=== PATIENT | male | born 1990 | race Hispanic/Latino ===

== ENCOUNTER 2023-04-28 18:27 | Emergency (ER) | payer OTHER ==
[~2023-04-28] VITALS: Ht 172.7 cm; Wt 95.3 kg
[2023-04-28 18:49] LABS: BASOPHILS % (AUTO) 0.4 % (0.0-5.0); EOSINOPHILS % (AUTO) 3.3 % (0.0-8.0); HEMATOCRIT 38.3 % (42-54); LYMPHOCYTES % (AUTO) 28.8 % (21.0-51.0); MEAN CORPUSCULAR HGB CONC 33.9 g/dL (32.0-36.0); MEAN CORPUSCULAR VOLUME 85.5 fL (79-99); NEUTROPHILS % (AUTO) 58.3 % (40.0-77.0); PLATELET COUNT (AUTO) 375 K/uL (130-400); RED BLOOD CELL COUNT(AUTO) 4.48 MIL/uL (4.50-6.20); RED CELL DISTRIBUTION WIDTH 12.9 % (11.0-15.5); WHITE BLOOD COUNT (AUTO) 5.2 K/uL (4.8-10.8)
[2023-04-28 18:52] LABS: APPEARANCE,URINE CLEAR (CLEAR); BILIRUBIN,URINE NEGATIVE (NEGATIVE); COLOR,URINE LIGHT-YELLOW (YELLOW); GLUCOSE, URINE (UA) NEGATIVE (NEGATIVE); KETONES,URINE NEGATIVE (NEGATIVE); LEUKOCYTE ESTERASE ,URINE NEGATIVE Leu/uL (NEGATIVE); NITRATE,URINE NEGATIVE (NEGATIVE); OCCULT BLOOD,URINE SMALL (NEGATIVE); PH,URINE 6.5 (5.0-8.0); PROTEIN,URINE NEGATIVE (NEGATIVE); UROBILINOGEN,URINE 0.2 mg/dL (0.2-1.0)
[2023-04-28 18:56] LABS: BACTERIA,URINE RARE /HPF (None Seen); MUCUS,URINE RARE LPF (None Seen); WBC,URINE 0-1 /HPF (0-1)
[2023-04-28 19:01] LABS: AMPHET/METH SCREEN,URINE NEGATIVE (NEGATIVE); BARBITURATE SCREEN, URINE NEGATIVE (NEGATIVE); BENZODIAZEPINES SCREEN,URINE NEGATIVE (NEGATIVE); CANNABINOID SCREEN,URINE NEGATIVE (NEGATIVE); COCAINE SCREEN,URINE POSITIVE (NEGATIVE); OPIATE SCREEN,URINE NEGATIVE (NEGATIVE); PHENCYCLIDINE SCREEN,URINE NEGATIVE (NEGATIVE)
[2023-04-28 19:06] LABS: CREATININE 0.9 mg/dL (0.5-1.5); POTASSIUM 3.6 mmol/L (3.5-5.1)
[2023-04-28 19:10] LABS: ALBUMIN 3.3 g/dL (3.5-5.0); TOTAL PROTEIN, SERUM 8.7 g/dL (6.0-8.3)
[2023-04-28] MEDS ORDERED: FAMOTIDINE 20MG VIAL IV ONE (20:30)
[2023-04-28] MEDS ORDERED: ONDANSETRON 4MG INJ IVP ONE (20:30)
[2023-04-28] MEDS ORDERED: LACTATED RINGERS 1000ML 1,000 ML IV ONE (20:30)
[2023-04-28] MEDS ORDERED: IOHEXOL 350 MG/ML 100ML INFUS..BTL IV ONE (20:32)
[2023-04-28] MEDS ORDERED: MORPHINE 4 MG SYG IVP ONE (21:00)
[2023-04-28] MEDS ORDERED: METO-296 PO (23:03)
[2023-04-28] MEDS ORDERED: PANT40TA PO (23:03)
[2023-04-28 23:24] VITALS: BP 134/81
== END 2023-04-28 23:26 | disposition home or self-care (01) ==
LOC: EDH 18:27
DX: R10.13 Epigastric pain (principal); R16.0 Hepatomegaly, not elsewhere classified; F17.200 Nicotine dependence, unspecified, uncomplicated
CPT/HCPCS: 99285; 74178; 96374; 76705; 96375; 80053; 80305; 83690; 85025; 36415; 81001; J7120; J3490; J2405; J2270; Q9967

== ENCOUNTER 2023-05-10 23:50 | Emergency (ER) | payer OTHER ==
[~2023-05-10] VITALS: Ht 172.7 cm; Wt 90.7 kg
[~2023-05-10 23:50] MED LIST: METO-296 PO; PANT40TA PO
[2023-05-10 23:51] VITALS: BP 132/73
[2023-05-11] MEDS ORDERED: MAG-55 PO (01:34)
== END 2023-05-11 01:38 | disposition home or self-care (01) ==
LOC: EDH 23:50
DX: K29.00 Acute gastritis without bleeding (principal); F17.200 Nicotine dependence, unspecified, uncomplicated; Z79.899 Other long term (current) drug therapy
CPT/HCPCS: 99282

== ENCOUNTER 2023-05-20 20:31 | Emergency (ER) | payer OTHER ==
[~2023-05-20] VITALS: Ht 172.7 cm; Wt 87.5 kg
[~2023-05-20 20:31] MED LIST changes: +MAG-55 PO
[2023-05-20 20:33] VITALS: BP 120/78
[2023-05-21] MEDS ORDERED: PRED20TA3 PO (00:27)
[2023-05-21] MEDS ORDERED: ALBU90AE2 IH (00:27)
[2023-05-21] MEDS ORDERED: IPRATROPIUM/ALBUTEROL SULFATE 3 ML SOLUTION IH STA (00:27)
[2023-05-21] MEDS ORDERED: IPRATROPIUM/ALBUTEROL SULFATE 3 ML SOLUTION IH ONE (00:30)
[2023-05-21 00:38] VITALS: PULSE 90; RESP 19
== END 2023-05-21 01:18 | disposition home or self-care (01) ==
LOC: EDH 20:31
DX: J45.909 Unspecified asthma, uncomplicated (principal); R07.89 Other chest pain; Z79.52 Long term (current) use of systemic steroids; Z79.899 Other long term (current) drug therapy; Z20.822 Contact with and (suspected) exposure to COVID-19
CPT/HCPCS: 99284; 87635; 87880; 87804 ×2; 71045; 94640; C9803

== ENCOUNTER 2023-05-31 16:09 | Emergency (ER) | payer BC, OTHER ==
[~2023-05-31] VITALS: Ht 172.7 cm; Wt 83.9 kg
[~2023-05-31 16:09] MED LIST changes: +ALBU90AE2 IH; +PRED20TA3 PO
[2023-05-31 16:49] LABS: BASOPHILS # (AUTO) 0.02 K/uL (0.00-0.20); BASOPHILS % (AUTO) 0.3 % (0.0-5.0); EOSINOPHILS # (AUTO) 0.07 K/uL (0.00-0.70); HEMATOCRIT 37.5 % (42-54); IMMATURE GRANULOCYTE ABSOLUTE 0.02 K/uL (0-1); LYMPHOCYTES # (AUTO) 0.9 K/uL (1.0-4.8); LYMPHOCYTES % (AUTO) 12.7 % (21.0-51.0); MEAN CORPUSCULAR HEMOGLOBIN 28.2 pg (27.0-33.0); MEAN CORPUSCULAR HGB CONC 34.9 g/dL (32.0-36.0); MEAN CORPUSCULAR VOLUME 80.8 fL (79-99); MONOCYTES # (AUTO) 0.8 K/uL (0.1-1.0); MONOCYTES % (AUTO) 11.5 % (3.0-13.0); NEUTROPHILS # (AUTO) 5.2 K/uL (1.8-7.7); NEUTROPHILS % (AUTO) 74.2 % (40.0-77.0); PLATELET COUNT (AUTO) 318 K/uL (130-400); RED BLOOD CELL COUNT(AUTO) 4.64 MIL/uL (4.50-6.20); RED CELL DISTRIBUTION WIDTH 12.9 % (11.0-15.5); WHITE BLOOD COUNT (AUTO) 7.1 K/uL (4.8-10.8)
[2023-05-31 16:57] LABS: POTASSIUM 3.9 mmol/L (3.5-5.1)
[2023-05-31] MEDS ORDERED: ONDANSETRON 4MG INJ IVP ONE (17:00)
[2023-05-31] MEDS ORDERED: PANTOPRAZOLE 40 MG/VIAL IVP ONE (17:00)
[2023-05-31] MEDS ORDERED: MORPHINE 4 MG SYG IVP ONE (17:00)
[2023-05-31 17:01] LABS: ALBUMIN 3.2 g/dL (3.5-5.0); BILIRUBIN,TOTAL 0.6 mg/dL (0.2-1.0); TOTAL PROTEIN, SERUM 8.9 g/dL (6.0-8.3)
[2023-05-31] MEDS ORDERED: METO5TAB2 PO (18:27)
[2023-05-31] MEDS ORDERED: PANT20TA18 PO (18:27)
[2023-05-31 18:55] VITALS: BP 122/77; PULSE 74; RESP 18; O2SAT 98
== END 2023-05-31 19:10 | disposition home or self-care (01) ==
LOC: EDH 16:09
DX: R10.11 Right upper quadrant pain (principal); R10.13 Epigastric pain; R16.0 Hepatomegaly, not elsewhere classified; F17.200 Nicotine dependence, unspecified, uncomplicated; Z79.52 Long term (current) use of systemic steroids; Z79.899 Other long term (current) drug therapy; Z90.79 Acquired absence of other genital organ(s)
CPT/HCPCS: 99284; 96374; 96375; 80053; 83690; 85025; 36415; J2405; J2270; C9113